=== PATIENT | female | born 1995 | race Caucasian/White ===

== ENCOUNTER 2020-02-07 12:43 | Emergency (ER) | payer SELFPAY ==
[~2020-02-07] VITALS: Ht 165.1 cm; Wt 77.1 kg
[2020-02-07 14:54] VITALS: BP 108/68
== END 2020-02-07 17:06 | disposition left against medical advice (07) ==
LOC: ER 12:43
DX: N61.0 Mastitis without abscess (principal); Z53.21 Procedure and treatment not carried out due to patient leaving prior to being seen by health care provider